=== PATIENT | female | born 1990 ===

== ENCOUNTER 2024-03-03 16:51 | Outpatient (REF) | payer BC, SELFPAY ==
--- NOTE | 2024-03-03 08:15 | PAPFT_PTH ---
PATIENT: Anil Mccracken LOC: [facility] U#:[id number] AGE/SX: 33/F ROOM: RE03/03/[address]: MICHELLE: 1990 BED: DIS: 03/03/2024 SPEC #: [id number] RECD: 03/03/24 18:13 STATUS: EN REQ #: [id number] MARLYN: 03/03/24 08:[address]: Arpita Bronson DEPT: [facility] Cytology RECD BY: Marian Deluca ENTERED: 03/03/24 18:13 SP TYPE: PAPFT SEBASTIAN DR: Unknown,Unknown Tissues: 1 - CX/ENDOCX FOR PAP SMEARS Procedures: PAP THIN PREP/[facility] Screening HPV DNA PROBE Comments: [id number] (HPV 16 & 18/45)
== END 2024-03-03 16:52 | disposition home or self-care (01) ==
LOC: LBN 16:51
PROVIDERS: Visit Provider Family Medicine
DX: Z00.00 Encounter for general adult medical examination without abnormal findings (principal); Z12.4 Encounter for screening for malignant neoplasm of cervix
CPT/HCPCS: 88142; 87624